=== PATIENT | female | born 2000 | race Caucasian/White ===

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

== ENCOUNTER 2020-04-11 20:54 | Emergency (ER) | payer OTHER, SELFPAY ==
[2020-04-11 20:59] VITALS: BP 139/90; PULSE 109; RESP 14; TEMP 36.9; O2SAT 100; BMI 26.6
--- NOTE | 2020-04-11 21:02 | HMH.EDUTC ---
[facility] [place] Clinical Impression: Viral syndrome Pharyngitis Qualifiers: Pharyngitis/tonsillitis etiology: unspecified etiology Qualified Code(s): J02.9 - Acute pharyngitis, unspecified Disposition: Home, Self-Care Condition on Discharge: Good Instructions: DI for Pharyngitis/Tonsillopharyngitis -- Adult, Preventing the Spread of Coronavirus Discharge Instructions Additional Instructions: Drink plenty of fluids. Take tylenol for pain or fever. Return if you begin to have difficulty breathing. Follow up with your regular doctor. GO TO THE ER FOR ANY WORSENING SYMPTOMS Prescriptions: Azithromycin [Z-Fred 250mg Tab*] 250 mg PO UD DOSE PK #6 tab Transmission Status: Pending to [facility] Referrals: Kaylah Snaford APRN [Primary Care Provider] - Forms: Work/School Release Time of Disposition: 21:06 Medical Decision Making - Medical Records Medical records reviewed: No: I reviewed the patient's medical records. - Nick Inquiry Pt receiving controlled substance: No Vital Signs: 04/11/20 20:59 Temperature 98.5 F Temperature Source Oral Pulse Rate [Radial] 109 H Respiratory Rate 14 Blood Pressure [Right Arm] 139/90 Blood Pressure Mean [Right Arm] 106 Blood Pressure Source [Right Arm] Automatic Cuff Blood Pressure Position [Right Arm] Sitting 02 Sat by Pulse Oximetry 100 Oxygen Delivery Method Room Air - Lab Data Lab results reviewed: Yes: I reviewed the patient's lab results. [facility] [place] - General Stated complaint: SORE THROAT BHATTI Time Seen by Provider: 04/11/20 21:02 Mode of Arrival: Ambulatory Source of Information: Patient Limitations: No Limitations Description of Symptoms (Recalled from Triage Doc. by RN): Headache and sore throat since yesterday HEENT Symptoms (Recalled from RN notes): Yes Resp Symptoms (Recalled from RN notes): No Skin Symptoms (Recalled from RN notes): No MS Symptoms (Recalled from RN notes): No Functional Status (Recalled from RN notes): wnl - History of Present Illness Provider Complaint: She c/o sore throat since yesterday. She has also had a fever and chilling. - Related Data Home Medications Medication Instructions Recorded Confirmed norgestimate-ethinyl estradiol 1 tab PO DAILY 06/16/19 11/24/19 0.18 mg/0.215mg/0.25mg-35 mcg(28)tablet sertraline 100 mg tablet 100 mg PO DAILY 06/16/19 11/24/19 Ergocalciferol (Vitamin D2) 50,000 unit PO QWEEK 09/02/19 11/24/19 [Drisdol] cetirizine 10 mg tablet mg PO 10/07/19 11/24/19 Previous Rx's Medication Instructions Recorded diclofenac sodium 1 % topical gel 4 g TOPICAL QID PRN #30 g 06/16/19 ibuprofen 800 mg tablet 800 mg PO BID #60 tab 08/25/19 ondansetron 4 mg disintegrating 4 mg PO Q6H #30 tab 08/25/19 tablet Azithromycin [Z-Fred 250mg Tab*] 250 mg PO UD DOSE PK #6 tab 04/11/20 Allergies Allergy/AdvReac Type Severity Reaction Status Date / Time amoxicillin [AMOXICILLIN] Allergy Mild Rash Verified 11/24/19 14:24 Penicillins [PENICILLINS] Allergy Mild Rash Verified 11/24/19 14:24 alcohol Allergy Rash Verified 11/24/19 14:24 [From Mastisol Liquid Adhesive] gum mastic Allergy Rash Verified 11/24/19 14:24 [From Mastisol Liquid Adhesive] methyl salicylate Allergy Rash Verified 11/24/19 14:24 [From Mastisol Liquid Adhesive] storax Allergy Rash Verified 11/24/19 14:24 [From Mastisol Liquid Adhesive] - Worker's Comp Is this a Worker's Comp case?: No H History - Hepatitis A Screen Drug use history?: No High risk sexual behaviors?: No History of sexually transmitted infection?: No Currently employed?: No Childcare worker?: No Do you have indoor plumbing?: Yes Do you have electricity?: Yes Attestation statement:: This patient has been screened for Hepatitis A risk factors. I have reviewed the patient's past medical history: Yes Medical History: Reports:: Anxiety, Depression Denies:: Cancer, Diabetes Mellitus Ty
[2020-04-11 21:09] VITALS: BP 139/90; PULSE 109; RESP 14; TEMP 36.9; O2SAT 100
[2020-04-13 12:35] LABS: Covid-19 Nasal PCR Sendout P&C NEGATIVE
[2020-04-14 11:15] LABS: UTC Strep Screen (Rapid) Negative (Negative)
== END 2020-04-11 21:12 | disposition home or self-care (01) ==
PROVIDERS: Emergency Provider Nurse Practitioner Family; PCP Nurse Practitioner
DX: Z20.828 Contact with and (suspected) exposure to other viral communicable diseases (principal); B34.9 Viral infection, unspecified; J02.9 Acute pharyngitis, unspecified; F41.8 Other specified anxiety disorders; Z88.0 Allergy status to penicillin
CPT/HCPCS: 87880; 99202; U0004

== ENCOUNTER → 2020-05-01 10:21 | Outpatient (CLI) | payer OTHER, SELFPAY | PROVIDERS: PCP Nurse Practitioner; Visit Provider Nurse Practitioner | DX: Z20.822 Contact with and (suspected) exposure to COVID-19 (principal); U07.1 COVID-19 | CPT/HCPCS: U0003 ==

== ENCOUNTER → 2020-11-13 14:18 | Outpatient (CLI) | payer OTHER, SELFPAY ==
[2020-11-13 14:46] VITALS: BMI 29.7
== END ==
PROVIDERS: PCP Family Medicine; Visit Provider Nurse Practitioner Family
DX: Z02.1 Encounter for pre-employment examination (principal)

== ENCOUNTER 2020-12-15 18:16 | Emergency (ER) | payer OTHER, SELFPAY ==
[2020-12-15 19:35] VITALS: BP 160/83; PULSE 83; RESP 19; TEMP 36.9; O2SAT 100; BMI 29.4
--- NOTE | 2020-12-15 19:39 | HMH.EDUTC ---
[facility] [place]position Clinical Impression: Low back pain Qualifiers: Chronicity: unspecified Back pain laterality: right Sciatica presence: without sciatica Qualified Code(s): M54.5 - Low back pain Disposition: Home, Self-Care Condition on Discharge: Good Instructions: Diarrhea, DI for Low Back Pain Additional Instructions: Make sure if pain in your lower abdomen returns go straight to the ER for further testing and evaluation Return if needed Monitor for fever over the counter Tylenol may help to lower fever *Ibuprofen magaly 6 hours with meal as needed for pain/inflammation *Not additional anti-inflammatory like motrin, aleve, advil with the above amount of Ibuprofen. You can still take Tylenol every 4 hours as needed if you need something else for pain *Ice 20 minutes every 2 hours for the first 48 hours after the initial injury followed by moist heat every 20 minutes 3-4 times a day to affected area *Muscle relaxer as prescribed as needed for muscle spasms but remember, it WILL cause drowsiness You cannot take it and drive, operate machinery or care for small children. *Keep this area active, no movement leads to more stiffness, However take it easy and avoid heavy lifting pushing or pulling *Follow up with you family doctor if no improvement for further treatment Prescriptions: Ibuprofen [Ibuprofen 600mg Tablet] 600 mg PO Q6HP PRN #20 tab PRN Reason: Moderate Pain Transmission Status: Received by [facility] methocarbamoL [Methocarbamol 500mg Tablet] 500 mg PO BID PRN #10 tab PRN Reason: Muscle Spasm Transmission Status: Received by [facility] Referrals: Justin Tristan MD [Primary Care Provider] - As needed (Follow up ) Time of Disposition: 19:58 Medical Decision Making - Nick Inquiry Pt receiving controlled substance: No Nick was queried for this patient: No Vital Signs: 12/15/20 19:35 12/15/20 19:53 Temperature 98.5 F Temperature Source Oral Pulse Rate [Left] 83 Respiratory Rate 19 Blood Pressure [Right Arm] 160/83 H 133/77 Blood Pressure Mean [Right Arm] 108 95 Blood Pressure Source [Right Arm] Automatic Cuff Blood Pressure Position [Right Arm] Sitting 02 Sat by Pulse Oximetry 100 - Lab Data Lab results reviewed: Yes: I reviewed the patient's lab results. Medical Decision Narrative: Discussed with patient and recommended transfer to the ED for further work up and evaluation Patient states that she is no longer having pain in her lower abdomen states that she does still having achy like pain in her lower back area that is worse with movement or palpation Declined transfer to ED states that she will follow up with PCP if any worsening of symptom or come back to the ED if pain worsens or returns in abdomen Patient state that she has taken Ibuprofen before without reaction or complications Again discussed with patient about transfer to the ED for further work up and testing and patient declined states that if pain returns or worsens she will go to ED or follow up with PCP [facility] [place] HPI - General Stated complaint: lower back pain Time Seen by Provider: 12/15/20 19:39 Mode of Arrival: Ambulatory Source of Information: Patient Limitations: No Limitations Description of Symptoms (Recalled from Triage Doc. by RN): pt c/o lower R side pain that is now hurting in her back. pain is on and off and pt has had diarhea since last night. HEENT Symptoms (Recalled from RN notes): No Resp Symptoms (Recalled from RN notes): No Skin Symptoms (Recalled from RN notes): No MS Symptoms (Recalled from RN notes): No Functional Status (Recalled from RN notes): na - History of Present Illness Provider Complaint: Patient state that yesterday she was eating and had achy like pain in her right lower quad/side area that seemed to move towards her back State that pain stopped but now she is having achy like pain in her right lower back area Denies known injury but states pain is worse with movement. States that she
[2020-12-15 19:53] VITALS: BP 133/77
[2020-12-15 20:29] VITALS: BP 160/83; PULSE 83; RESP 19; TEMP 36.9
== END 2020-12-15 20:30 | disposition home or self-care (01) ==
PROVIDERS: Emergency Provider Nurse Practitioner; PCP Family Medicine
DX: M54.5 Low back pain (principal); R19.7 Diarrhea, unspecified; Z88.0 Allergy status to penicillin; Z91.048 Other nonmedicinal substance allergy status; F41.8 Other specified anxiety disorders
CPT/HCPCS: 99203; G0463

== ENCOUNTER → 2021-02-16 15:04 | Outpatient (CLI) | payer OTHER, SELFPAY | PROVIDERS: PCP Family Medicine; Visit Provider Nurse Practitioner | DX: Z20.822 Contact with and (suspected) exposure to COVID-19 (principal) | CPT/HCPCS: C9803; U0003; U0005 ==

== ENCOUNTER → 2021-06-14 14:52 | Outpatient (CLI) | payer OTHER, SELFPAY ==
[2021-06-14 16:22] LABS: HCG,Quantitative 3902 mIU/ml (0-5.42)
== END ==
PROVIDERS: PCP Family Medicine; Visit Provider Obstetrics & Gynecology
DX: Z32.01 Encounter for pregnancy test, result positive (principal)
CPT/HCPCS: 36415; 84702

== ENCOUNTER → 2021-06-15 15:19 | Outpatient (CLI) | payer OTHER, SELFPAY ==
[2021-06-15 17:06] LABS: HCG,Quantitative 6037 mIU/ml (0-5.42)
== END ==
PROVIDERS: Visit Provider Obstetrics & Gynecology
DX: Z34.90 Encounter for supervision of normal pregnancy, unspecified, unspecified trimester (principal)
CPT/HCPCS: 36415; 84702

== ENCOUNTER → 2021-06-29 12:43 | Outpatient (CLI) | payer OTHER, SELFPAY ==
--- NOTE | 2021-06-29 12:52 | US_ITS ---
FINAL REPORT CLINICAL HISTORY: Dates FINDINGS: Transvaginal sonographic images of the pelvis were obtained. Single living intrauterine is noted with average ultrasound age of 7 weeks, 1 day. [place]-rump length is 1.03 cm consistent with 7 weeks 1 day. Heart rate is detected at 151 bpm. Yolk sac is present. The right ovary measures 3.2 x 2.6 x 2.5 cm. The left ovary measures 2.2 x 1.5 x 1.9 cm. Both ovaries appear normal. IMPRESSION: Single living intrauterine . Reviewed, Interpreted and Dictated by Arnav Lopez III, MD Transcribed by Sandra Quezada Authenticated by Arnav Lopez III, MD on 06/29/2021 02:28:34 PM [facility]
[2021-06-29 14:11] LABS: Basophils % 0.5 % (0.1-2.0); Eosinophils % 0.3 % (0.1-12.0); Hematocrit 41.2 % (37.0-47.0); Hemoglobin 13.1 g/dL (12.2-16.2); Lymphocytes # 1.8 K/mm3 (0.7-4.5); Lymphocytes % 28.3 % (10-50); Mean Corpuscular HGB Conc 31.8 g/dL (31.8-35.4); Mean Corpuscular Hemoglobin 28.3 pg (27.0-31.2); Mean Corpuscular Volume 89.1 fl (81-99); Mean Platelet Volume 9.9 fl (7.4-10.4); Monocytes # 0.4 K/mm3 (0.1-1.0); Monocytes % 6.8 % (1.7-9.3); Neutrophils # 4.2 K/mm3 (1.8-7.8); Neutrophils % 64.2 % (37.0-80.0); Platelet Count 294 K/mm3 (142-424); Red Blood Count 4.63 M/mm3 (4.20-5.40); Red Cell Distribution Width 13.3 % (11.5-17.5); White Blood Count 6.5 K/mm3 (4.8-10.8)
[2021-07-01 09:23] LABS: HIV Screen 4th Generation wRfx Non Reactive (Non Reactive)
[2021-07-01 10:13] LABS: Rapid Plasma Reagin Ab Titer Non Reactive (NonRea<1:1); Rubella Antibodies, IgG 9.35 index (Immune >0.99)
[2021-07-01 11:13] LABS: Hepatitis B Surface Antigen Negative (Negative); Hepatitis C Antibody <0.1 s/co ratio (0.0-0.9)
== END ==
PROVIDERS: PCP Family Medicine; Visit Provider Obstetrics & Gynecology
DX: Z34.90 Encounter for supervision of normal pregnancy, unspecified, unspecified trimester (principal)
CPT/HCPCS: 36415; 76801; 85025; 86592; 86703; 86762; 86850; 87340; 87380; G0432

== ENCOUNTER 2021-09-19 11:19 | Emergency (ER) | payer OTHER, SELFPAY ==
[2021-09-19 11:33] VITALS: BP 131/76; PULSE 82; RESP 19; TEMP 36.8; O2SAT 98; BMI 27.3
--- NOTE | 2021-09-19 11:56 | HMH.EDUTC ---
[facility] [place] Clinical Impression: Asymptomatic bacteriuria during Low back pain Qualifiers: Chronicity: acute Back pain laterality: right Sciatica presence: without sciatica Qualified Code(s): M54.50 - Low back pain, unspecified Disposition: Home, Self-Care Condition on Discharge: Good Instructions: DI for Low Back Pain Prescriptions: Nitrofurantoin Monohyd/M-Cryst [Macrobid 100 mg Capsule] 100 mg PO DAILY 5 Days #5 cap Prescription Printed Referrals: Mary Jane Solorzano APRN [Primary Care Provider] - Medical Decision Making - Medical Records Medical records reviewed: No: I reviewed the patient's medical records. - Nick Inquiry Pt receiving controlled substance: No Vital Signs: 09/19/21 11:33 09/19/21 13:06 09/19/21 13:30 Temperature 98.3 F 98.4 F Temperature Source Oral Oral Pulse Rate 78 Pulse Rate [Left Radial] 82 80 Respiratory Rate 19 18 16 Blood Pressure 115/64 Blood Pressure [Right Arm] 131/76 140/86 Blood Pressure Mean 81 Blood Pressure Mean [Right Arm] 94 104 Blood Pressure Position 02 Sat by Pulse Oximetry 98 100 100 Oxygen Delivery Method Room Air 09/19/21 14:00 09/19/21 15:56 Temperature 98 F Temperature Source Oral Pulse Rate 68 78 Pulse Rate [Left Radial] Respiratory Rate 18 16 Blood Pressure 119/64 123/74 Blood Pressure [Right Arm] Blood Pressure Mean 78 Blood Pressure Mean [Right Arm] Blood Pressure Position Sitting 02 Sat by Pulse Oximetry 100 Oxygen Delivery Method Room Air - Lab Data Lab results reviewed: Yes: I reviewed the patient's lab results. Lab Results 09/19/21 11:35: Urine Color Yellow, Urine Appearance Cloudy, Urine pH 7.5, Ur Specific [place] 1.020, Urine Protein Negative, Urine Glucose (UA) Negative, Urine Ketones Negative, Urine Blood Negative, Urine Nitrate Negative, Urine Bilirubin Negative, Urine Urobilinogen 0.2, Ur Leukocyte Esterase 1+ A 09/19/21 11:36: Urine Color Yellow, Urine Appearance Clear, Urine pH 7.5, Ur Specific [place] 1.015, Urine Protein Negative, Urine Glucose (UA) Negative, Urine Ketones Negative, Urine Blood Negative, Urine Nitrate Negative, Urine Bilirubin Negative, Urine Urobilinogen 0.2, Ur Leukocyte Esterase 1+ A, Urine RBC Occasional, Urine WBC 3-5, Ur Squamous Epith Cells Occasional, Urine Bacteria Trace 09/19/21 12:52: WBC 9.7, RBC 4.47, Hgb 12.8, Hct 39.6, MCV 88.6, MCH 28.7, MCHC 32.4, RDW 14.0, Plt Count 252, MPV 9.7, Neut % (Auto) 77.3, Lymph % (Auto) 16.8, [place] % (Auto) 2.9, Eos % (Auto) 0.8, Baso % (Auto) 2.3 H, Neut # (Auto) 7.5, Lymph # (Auto) 1.6, [place] # (Auto) 0.3, Eos # (Auto) 0.1, Baso # (Auto) 0.2 09/19/21 12:52: Sodium 134 L, Potassium 4.1, Chloride 104, Carbon Dioxide 22, Anion Gap 12.1, BUN 4 L, Creatinine 0.50 L, Estimated Creat Clear 223, Estimated GFR 156, Est GFR ( Amer) 188, Glucose 85, Calcium 8.7, HCG, Quant [id number] Result diagrams: 09/19/21 12:52 09/19/21 12:52 Orders (Tests/Meds): ORDERS Category Date Time Status Urine Culture Stat Micro 09/19/21 11:36 Received [facility] [place] - General Stated complaint: lower back pain Time Seen by Provider: 09/19/21 11:56 Mode of Arrival: Ambulatory Source of Information: Patient Limitations: No Limitations Description of Symptoms (Recalled from Triage Doc. by RN): pt here for right sided lower back pain. pt is 18 weeks . back pain began this am. HEENT Symptoms (Recalled from RN notes): No Resp Symptoms (Recalled from RN notes): No Skin Symptoms (Recalled from RN notes): No MS Symptoms (Recalled from RN notes): Yes Functional Status (Recalled from RN notes): wnl - History of Present Illness Provider Complaint: She c/o low back pain for the past 2 days. She is 18 weeks . - Related Data Home Medications Medication Instructions Recorded Confirmed sertraline 100 mg tablet 100 mg PO DAILY 06/16/19 08/25/21 prenat.vits,steffi,uln-rrbv-vrjzp 1 tab PO DAILY 07/05/21 08/25/21 Previous Rx's
[2021-09-19 12:29] LABS: Apearance,Urine Cloudy (Clear); Bilirubin,Urine Negative (Negative); Blood, Urine Negative (Negative); Color,Urine Yellow (Yellow); Glucose,Urine (UA) Negative (Negative); Ketones,Urine Negative (Negative); PH,Urine 7.5 (5.0-8.5); Protein,Urine Negative (Negative); Urobilinogen,Urine 0.2 EU/dl (0.2)
[2021-09-19 12:30] LABS: UTC Leukocyte Esterase,Urine 1+ (Negative); UTC Nitrate,Urine Negative (Negative)
[2021-09-19 13:01] LABS: Basophils # 0.2 K/mm3 (0-0.2); Basophils % 2.3 % (0.1-2.0); Eosinophils # 0.1 K/mm3 (0.0-0.4); Eosinophils % 0.8 % (0.1-12.0); Hematocrit 39.6 % (37.0-47.0); Hemoglobin 12.8 g/dL (12.2-16.2); Lymphocytes # 1.6 K/mm3 (0.7-4.5); Lymphocytes % 16.8 % (10-50); Mean Corpuscular HGB Conc 32.4 g/dL (31.8-35.4); Mean Corpuscular Hemoglobin 28.7 pg (27.0-31.2); Mean Corpuscular Volume 88.6 fl (81-99); Mean Platelet Volume 9.7 fl (7.4-10.4); Monocytes # 0.3 K/mm3 (0.1-1.0); Monocytes % 2.9 % (1.7-9.3); Neutrophils # 7.5 K/mm3 (1.8-7.8); Neutrophils % 77.3 % (37.0-80.0); Platelet Count 252 K/mm3 (142-424); Red Blood Count 4.47 M/mm3 (4.20-5.40); White Blood Count 9.7 K/mm3 (4.8-10.8)
[2021-09-19 13:06] VITALS: BP 140/86; PULSE 80; RESP 18; TEMP 36.9; O2SAT 100; BMI 27.3
[2021-09-19 13:11] LABS: Blood Urea Nitrogen 4 mg/dl (7-17); Calcium 8.7 mg/dl (8.4-10.2); Carbon Dioxide 22 mmol/L (22.0-30.0); Chloride 104 mmol/L (98-107); Glucose 85 mg/dl (74-100); Potassium 4.1 mmoL/L (3.5-5.1); Sodium 134 mmol/L (136-145)
--- NOTE | 2021-09-19 13:18 | HMH.EDGENADL ---
ED Disposition Clinical Impression: Asymptomatic bacteriuria during Low back pain Qualifiers: Chronicity: acute Back pain laterality: right Sciatica presence: without sciatica Qualified Code(s): M54.50 - Low back pain, unspecified Disposition: Home, Self-Care Condition on Discharge: Good Prescriptions: Nitrofurantoin Monohyd/M-Cryst [Macrobid 100 mg Capsule] 100 mg PO DAILY 5 Days #5 cap Prescription Printed Referrals: Mary Jane Solorzano APRN [Primary Care Provider] - - Critical Care Critical Care Time: No Attestation: On 09/19/21, the high probability of a clinically significant, sudden or life threatening deterioration of the following system(s) required my full and direct attention, intervention and personal management. The time I documented below is in addition to time spent performing reported procedures but includes the following listed in this critical care notation. Medical Decision Making - Medical Records Medical records reviewed: Yes: I reviewed the patient's medical records. - Nick Inquiry Pt receiving controlled substance: No Vital Signs: 09/19/21 11:33 09/19/21 13:06 09/19/21 13:30 Temperature 98.3 F 98.4 F Temperature Source Oral Oral Pulse Rate 78 Pulse Rate [Left Radial] 82 80 Respiratory Rate 19 18 16 Blood Pressure 115/64 Blood Pressure [Right Arm] 131/76 140/86 Blood Pressure Mean 81 Blood Pressure Mean [Right Arm] 94 104 02 Sat by Pulse Oximetry 98 100 100 Oxygen Delivery Method Room Air 09/19/21 14:00 Temperature Temperature Source Pulse Rate 68 Pulse Rate [Left Radial] Respiratory Rate 18 Blood Pressure 119/64 Blood Pressure [Right Arm] Blood Pressure Mean 78 Blood Pressure Mean [Right Arm] 02 Sat by Pulse Oximetry 100 Oxygen Delivery Method - Lab Data Lab results reviewed: Yes: I reviewed the patient's lab results. Lab Results 09/19/21 11:35: Urine Color Yellow, Urine Appearance Cloudy, Urine pH 7.5, Ur Specific [place] 1.020, Urine Protein Negative, Urine Glucose (UA) Negative, Urine Ketones Negative, Urine Blood Negative, Urine Nitrate Negative, Urine Bilirubin Negative, Urine Urobilinogen 0.2, Ur Leukocyte Esterase 1+ A 09/19/21 11:36: Urine Color Yellow, Urine Appearance Clear, Urine pH 7.5, Ur Specific [place] 1.015, Urine Protein Negative, Urine Glucose (UA) Negative, Urine Ketones Negative, Urine Blood Negative, Urine Nitrate Negative, Urine Bilirubin Negative, Urine Urobilinogen 0.2, Ur Leukocyte Esterase 1+ A, Urine RBC Occasional, Urine WBC 3-5, Ur Squamous Epith Cells Occasional, Urine Bacteria Trace 09/19/21 12:52: WBC 9.7, RBC 4.47, Hgb 12.8, Hct 39.6, MCV 88.6, MCH 28.7, MCHC 32.4, RDW 14.0, Plt Count 252, MPV 9.7, Neut % (Auto) 77.3, Lymph % (Auto) 16.8, [place] % (Auto) 2.9, Eos % (Auto) 0.8, Baso % (Auto) 2.3 H, Neut # (Auto) 7.5, Lymph # (Auto) 1.6, [place] # (Auto) 0.3, Eos # (Auto) 0.1, Baso # (Auto) 0.2 09/19/21 12:52: Sodium 134 L, Potassium 4.1, Chloride 104, Carbon Dioxide 22, Anion Gap 12.1, BUN 4 L, Creatinine 0.50 L, Estimated Creat Clear 223, Estimated GFR 156, Est GFR ( Amer) 188, Glucose 85, Calcium 8.7, HCG, Quant [id number] H Result diagrams: 09/19/21 12:52 09/19/21 12:52 Orders (Tests/Meds): ORDERS Category Date Time Status Urine Culture Stat Micro 09/19/21 11:36 Received US OB >= 14 weeks Fetus Stat Ultrasound 09/19/21 13:48 Taken Medical Decision Narrative: Robbie is a healthy 21-year-old female presenting with a chief complaint of right flank pain and right lower abdominal pain. Denies any vaginal bleeding. Differential diagnosis includes, but is not limited to, urinary tract infection, pyelonephritis, renal stone, complication, other. Initial exam, patient is hemodynamically stable nontoxic-appearing. She was evaluate CBC, CMP, UA and OB ultrasound. Initial blood pressure is hypertensive but normalizes on recheck. Lab work is unremarkable, UA is negative for proteinuria. On reas
[2021-09-19 13:30] VITALS: BP 115/64; PULSE 78; RESP 16; O2SAT 100
[2021-09-19 13:31] LABS: Creatinine Clearance Estimated 223 mL/min (50-200); Estimated Glomerular Filt Rate 156 ml/min (>60); GFR (African American) 188 ML/MIN (>60)
--- NOTE | 2021-09-19 13:46 | PC.NURSE ---
notified LIANNE LEE of R
--- NOTE | 2021-09-19 13:48 | US_ITS ---
PROCEDURE INFORMATION: Exam: US After First Trimester, Transabdominal Exam date and time: 09/19/2021 2:23 PM Age: 21 years old Clinical indication: complicated by abdominal or pelvic pain; Other: RT low back; Gestational age or lmp: 18 w 6 d; ; Additional info: Abd pain TECHNIQUE: Imaging protocol: Real-time transabdominal obstetrical ultrasound of the maternal pelvis and a second or third trimester with image documentation. COMPARISON: US OB <= 14 WEEKS FETUS 06/29/2021 1:04 PM FINDINGS: Gestation: See heart rate finding. heart rate: 142 BPM. presentation: breech presentation. Placenta: Anterior placenta, grade 1. Amniotic fluid: Amniotic fluid is normal for gestational age. ANATOMY: midline falx: Normal cerebellum: Normal heart four-chamber view, heart size and position: Four-chamber heart demonstrated. kidneys: Incompletely evaluated stomach: Obscuredbyposition urinary bladder: Demonstrated spine: Obscuredbyposition Umbilical cord insertion site into the abdomen: Normal Umbilical cord vessel number: Obscuredbyposition arms and hands: Incompletely evaluated legs and feet: Incompletely evaluated. external genitalia: NormalExternalGenitaliaParts BIOMETRY: Gestational age (AUA): AUA: 19 weeks 5 days. Estimated due date (AUA): 02/08/2022. Estimated weight: 314 g (11 oz) Biparietal diameter (BPD): BPD 4.46 cm. Nineteen weeks 4 days. Head circumference (HC): Scar 16.36 cm. Nineteen weeks 1 day. Abdominal circumference (AC): 15.09 cm. Twenty weeks 3 days. Femur length (FL): 3.04 cm. Nineteen weeks 3 days. MATERNAL: Uterus: Unremarkable. Cervix: Unremarkable. Right ovary/adnexa: Obscured by lack of adequate acoustic window. Left ovary/adnexa: Obscured by lack of adequate acoustic window. Right kidney: Mild dilatation of the maternal right kidney. Intraperitoneal space: No intraperitoneal free fluid. Other findings: Ovaries not identified. IMPRESSION: 1. Single live intrauterine gestation 19 weeks 5 days by ultrasound dating. 2. Mild right hydronephrosis. 3. anatomy not completely evaluated. Follow-up at appropriate interval recommended.
--- NOTE | 2021-09-19 13:48 | PC.NURSE ---
spoke with rodolfo in lab, reports she does have urine that was sent from [facility], states she will receive it in now.
[2021-09-19 13:49] LABS: Microscopic, Urine URINE MICROSCOPIC (MICROSCOPIC)
--- NOTE | 2021-09-19 13:51 | PC.NURSE ---
notified radiology of ultrasound order, spoke with bobby, states she will let occupational therapy technician staff know.
[2021-09-19 14:00] VITALS: BP 119/64; PULSE 68; RESP 18; O2SAT 100
[2021-09-19 14:00] LABS: Appearance,Urine CLEAR (Clear); Bilirubin,Urine Negative (Negative); Blood, Urine Negative (Negative); Color,Urine YELLOW (Yellow); Glucose,Urine (UA) Negative (Negative); Ketones,Urine Negative (Negative); Leukocyte Esterase,Urine 1+ (Negative); Nitrate,Urine Negative (Negative); PH,Urine 7.5 (5.0-8.5); Protein,Urine Negative (Negative); Specific Gravity, Urine 1.015 (1.005-1.030); Urobilinogen,Urine 0.2 EU/dl (0.2)
[2021-09-19 14:04] LABS: Anion Gap 12.1 mEq/L (5-15); HCG,Quantitative 16120 mIU/ml (0-5.42)
[2021-09-19 14:14] LABS: Bacteria,Urine Trace /lpf; RBC,Urine Occasional #/hpf (0-3); Squamous Epithelial Cell,Urine Occasional #/hpf (0-5)
--- NOTE | 2021-09-19 14:25 | PC.NURSE ---
pt to ultrasound
[2021-09-19 15:56] VITALS: BP 123/74; PULSE 78; RESP 16; TEMP 36.6; O2SAT 97
== END 2021-09-19 15:57 | disposition home or self-care (01) ==
LOC: UTC 11:21 → ER 12:47
PROVIDERS: Nurse Practitioner Family; Emergency Provider Emergency Medicine; PCP Nurse Practitioner Family
DX: O23.92 Unspecified genitourinary tract infection in pregnancy, second trimester (principal); O26.892 Other specified pregnancy related conditions, second trimester; M54.50 Low back pain, unspecified; O99.342 Other mental disorders complicating pregnancy, second trimester; F32.A Depression, unspecified; F41.9 Anxiety disorder, unspecified; Z79.899 Other long term (current) drug therapy; Z88.0 Allergy status to penicillin; Z88.1 Allergy status to other antibiotic agents; Z88.3 Allergy status to other anti-infective agents; Z88.8 Allergy status to other drugs, medicaments and biological substances; Z3A.18 18 weeks gestation of pregnancy
CPT/HCPCS: 76805; 80048; 81001; 81003; 84702; 85025; 87086; 99284

== ENCOUNTER → 2021-09-30 14:18 | Outpatient (CLI) | payer OTHER, SELFPAY ==
--- NOTE | 2021-09-30 14:26 | US_ITS ---
FINAL REPORT CLINICAL HISTORY: Anatomy COMPARISON: 09/19/2021 FINDINGS: There is a single live intrauterine gestation. Presentation is breech. The cervix is closed and measures 4 cm. Placenta is anterior, grade 1. movement is noted. heart rate is 146 beats per minute. Three-vessel cord with satisfactory umbilical cord insertion. Four-chamber heart is noted. brain and ventricles are unremarkable. Chest and diaphragm are unremarkable. ABDOMEN: Both kidneys are unremarkable. Stomach is unremarkable. SPINE: No anomalies identified. Both arms and legs noted. AMNIOTIC FLUID: Appropriate amount. MEASUREMENTS: ULTRASOUND AGE: 20 weeks 6 days. GESTATION AGE: 20 weeks 3 days. ESTIMATED WEIGHT: 399 g GROWTH PERCENTILE: 81 % BPD: 4.83 cm corresponding to 20 weeks 5 days. OFD: 6.25 cm corresponding to 21 weeks 0 days. HC: 17.55 cm corresponding to 20 weeks 1 day. AC: 16.17 cm corresponding to 21 weeks 2 days. FL: 3.55 cm corresponding to 21 weeks 2 days. CEREBELLUM: 2.02 cm corresponding to 20 weeks 4 days. HUMERUS: 3.40 cm corresponding to 21 weeks 4 days. HC/AC: 1.09 CI: 77% FL/BPD: 73% FL/AC: 22% IMPRESSION: Single living IUP with an ultrasound age of 20 weeks 6 days. Reviewed, Interpreted and Dictated by Arnav Lopez III, MD Transcribed by Kylah Christianson Authenticated and . [facility]
== END ==
PROVIDERS: PCP Nurse Practitioner Family; Visit Provider Obstetrics & Gynecology
DX: Z34.90 Encounter for supervision of normal pregnancy, unspecified, unspecified trimester (principal)
CPT/HCPCS: 76811

== ENCOUNTER 2023-08-07 15:47 | Day surgery (SDC) | payer BC, SELFPAY ==
[2023-08-07] VITALS (10 sets, daily range): BP systolic 105–142; BP diastolic 50–100; PULSE 78–96; RESP 16–19; TEMP 36.3–36.9; O2SAT 94–100; BMI 30.7
--- NOTE | 2023-08-07 15:55 | HMH.EDGENADL ---
Discharge Plan Disposition Patient Disposition: Admitted Condition: Good Clinical Impressions Clinical Impression: Acute appendicitis Discharge ED Provider: Josse Avelar General Adult HPI <JENIFER Ocampo - Last Filed: 08/07/23 17:48> General Chief complaint: Abdominal Pain Stated complaint: lower right abd pain Time Seen by Provider: 08/07/23 15:50 Mode of Arrival: Ambulatory Source of Information: Patient Limitations: No Limitations Description of Symptoms (Recalled from ER Triage Doc. by RN): Patient reports a sharp pain that developed approx 1 hour ago in her right lower abdomen. Denies N/V/D. History of Present Illness HPI narrative: Patient presents for evaluation of acute right lower quadrant abdominal pain. Patient states that pain began suddenly without any provoking event. She reports nausea but no vomiting or diarrhea. Patient's last bowel movement was today. She denies chest pain shortness of breath fever chills hemoptysis hematochezia melena nausea vomiting diarrhea, vaginal discharge, dysuria hematuria. Related Data Home Medications Medication Instructions Recorded Confirmed sertraline 100 mg tablet 100 mg PO DAILY Depression 06/16/19 10/07/21 prenat.vits,steffi,vhb-ucke-lmvjt 1 tab PO DAILY 07/05/21 10/07/21 Previous Rx's Medication Instructions Recorded ondansetron 4 mg disintegrating 4 mg PO Q4H PRN nausea and 07/05/21 tablet vomiting #30 tabs clindamycin HCl 300 mg capsule 300 mg PO Q6H 5 days #20 caps 08/07/23 hydrocodone 5 mg-acetaminophen 325 1 tab PO Q6H PRN post-op pain #17 08/07/23 mg tablet tabs metronidazole 500 mg tablet 500 mg PO Q12H #10 tabs 08/07/23 Allergies Allergy/AdvReac Type Severity Reaction Status Date / Time amoxicillin [AMOXICILLIN] Allergy Mild Rash Verified 10/07/21 15:51 Penicillins [PENICILLINS] Allergy Mild Rash Verified 10/07/21 15:51 alcohol Allergy Rash Verified 10/07/21 15:51 [From Mastisol Liquid Adhesive] gum mastic Allergy Rash Verified 10/07/21 15:51 [From Mastisol Liquid Adhesive] methyl salicylate Allergy Rash Verified 10/07/21 15:51 [From Mastisol Liquid Adhesive] storax Allergy Rash Verified 10/07/21 15:51 [From Mastisol Liquid Adhesive] [facility] <JENIFER Ocampo - Last Filed: 08/07/23 17:48> [facility] Disclaimer: The information contained in this section may have been updated after the patient was seen, as this information can be updated by other users. Social History Smoking Status: Never smoker second hand exposure: No alcohol intake: never substance use type: denies use current occupational status: employed Travel in the last 8 weeks: None household members: family housing: house current occupation: [employer] caffeine: Yes <JENIFER Ocampo - Last Filed: 08/07/23 17:48> ROS Obtained: Yes Systems reviewed as appropriate & no additional complaints except as documented Physical Exam <JENIFER Ocampo Last Filed: 08/07/23 17:48> General General appearance: alert and in no apparent distress Head Head exam: atraumatic and normal inspection Eye Eye exam: Present normal appearance and EOMI ENT ENT exam: Present normal exam, normal oropharynx and mucous membranes moist Neck Neck exam: Present normal inspection and full ROM Chest Chest inspection: Present normal inspection and symmetric chest wall rise Respiratory Respiratory exam: Present normal lung sounds bilaterally; Absent respiratory distress Cardiovascular Cardiovascular exam: Present regular rate and normal rhythm Abdominal Exam Abdominal exam: Present soft, tenderness (Patient is moderately tender to palpation both in the right upper and right lower quadrants but no rebound guarding or rigidity currently) and normal bowel sounds; Absent guarding or rebound Extremities Exam Extremities exam: Present normal inspection and full ROM Back Exam Back exam: Present normal inspection and full ROM; Absent tenderness Neurological Exam Neurological exam: Present alert and oriented X3 Psychiatric Psychiatric exam: Present normal affect and normal mood Skin Skin exam: Present warm, dry and normal color Medical Decision Making <JENIFER Ocampo - Last Filed: 08/07/23 17:48> Medical Records Medical records reviewed: Yes I reviewed the patient's medical records. Nick Inquiry Pt receiving controlled substance: No Vital Signs: 08/07/23 15:48 08/07/23 17:30 08/07/23 18:30 Temperature 98.1 F 98.1 F Temperature Source Oral Oral Pulse Rate 85 85 Pulse Rate [Radial] 96 H Respiratory Rate 16 16 Blood Pressure 121/76 121/76 Blood Pressure [Right Arm] 142/100 H Blood Pressure Mean [Right Arm] 114 Blood Pressure Source Automatic Cuff Blood Pressure Source [Right Arm] Automatic Cuff Blood Pressure Position Sitting Blood Pressure Position [Right Arm] Sitting 02 Sat by Pulse Oximetry 100 100 Oxygen Delivery Method Room Air Room Air Room Air Lab Data Lab results reviewed: Yes I reviewed the patient's lab results. Lab Results 08/07/23 16:00: WBC 12.9 H, RBC 4.95, Hgb 13.1, Hct 42.5, MCV 85.8, MCH 26.4 L, MCHC 30.8 L, RDW 13.9, Plt Count 334, MPV 8.8, Neut % (Auto) 71.2, Lymph % (Auto) 22.5, [place] % (Auto) 3.7, Eos % (Auto) 1.5, Baso % (Auto) 1.1, Neut # (Auto) 9.2 H, Lymph # (Auto) 2.9, [place] # (Auto) 0.5, Eos # (Auto) 0.2, Baso # (Auto) 0.2, PT 11.0, INR 1.02, Sodium 141, Potassium 3.8, Chloride 104, Carbon Dioxide 31 H, Anion Gap 9.8, BUN 12, Creatinine 0.70, Estimated Creat Clear 170, Estimated GFR 104, Est GFR ( Amer) 125, Glucose 113 H, Calcium 9.1, Magnesium 2.2, Total Bilirubin 0.4, AST 30, ALT 23, Alkaline Phosphatase 84, C-Reactive Protein 1.1, Total Protein 7.4, Albumin 4.5, Globulin 2.9, Albumin/Globulin Ratio 1.6, Serum HCG, Qual Negative 08/07/23 16:08: Urine Color Christa, Urine Appearance Clear, Urine pH 6.0, Ur Specific [place] 1.025, Urine Protein Negative, Urine Glucose (UA) Negative, Urine Ketones Trace, Urine Blood 1+, Urine Nitrate Negative, Urine Bilirubin 1+ A, Urine Urobilinogen 0.2, Ur Leukocyte Esterase Trace, Urine RBC Occasional, Urine WBC Occasional, Ur Squamous Epith Cells 3-5, Urine Bacteria Trace 08/07/23 16:00 08/07/23 16:00 Orders (Tests/Meds): ED MEDICATIONS Generic Name Dose Route Start Last Admin Trade Name Freq PRN Reason Stop Dose Admin Hydromorphone HCl 0.5 mg 08/07/23 20:31 Hydromorphone 2mg/Ml Syringe IV 08/07/23 22:31 Q5MINP PRN Severe Pain (7-10) Clindamycin Phosphate 900 mg in 50 mls @ 100 mls/hr 08/07/23 18:45 Clindamycin 900mg/50ml D5w Premix IV 08/07/23 18:57 ONCE ONE Metronidazole 500 mg in 100 mls @ 100 mls/hr 08/07/23 18:45 08/07/23 19:00 Flagyl 500mg/100ml Ivpb IV 08/07/23 19:27 100 mls/hr ONCE ONE Administration Meperidine HCl 12.5 mg 08/07/23 20:31 Meperidine 25mg/Ml 1ml Syringe IV 08/07/23 22:31 Q5MINP PRN Shivering Morphine Sulfate 1 mg 08/07/23 20:31 Morphine 2mg/Ml Syringe IV 08/07/23 22:31 Q5MINP PRN Mild Pain (1-3) Ondansetron HCl 4 mg 08/07/23 20:31 Ondansetron 4mg/2ml Vial IV 08/07/23 22:32 Q6HP PRN Nausea Discontinued Medications Generic Name Dose Route Start Last Admin Trade Name Freq PRN Reason Stop Dose Admin Acetaminophen 1,000 mg 08/07/23 15:55 08/07/23 16:09 Acetaminophen 1,000mg/100ml Vial IV 08/07/23 15:56 1,000 mg ONCE ONE Administration Lactated Ringer's 1,000 mls @ 999 mls/hr 08/07/23 15:55 08/07/23 16:09 Lactated Ringer's 1000 Ml Bag IV 08/07/23 16:55 999 mls/hr .Q1H1M ONE Administration Clindamycin Phosphate 900 mg in 50 mls @ 100 mls/hr 08/07/23 18:28 Clindamycin 900mg/50ml D5w Premix IV 08/07/23 18:57 ONCE ONE Metronidazole 500 mg in 100 mls @ 100 mls/hr 08/07/23 18:28 Flagyl 500mg/100ml Ivpb IV 08/07/23 19:27 ONCE ONE Iopamidol 75 ml 08/07/23 17:19 08/07/23 17:20 Iopamidol-370 (76%);100ml Bottle IV 08/07/23 17:20 75 ml ONCE ONE Administration Ketorolac Tromethamine 15 mg 08/07/23 15:55 08/07/23 16:09 Ketorolac 30mg/Ml Vial IV 08/07/23 15:56 15 mg ONCE ONE Administration Ondansetron HCl 4 mg 08/07/23 15:59 08/07/23 16:09 Ondansetron 4mg/2ml Vial IV 08/07/23 16:00 4 mg ONCE ONE Administration Sodium Chloride 10 ml 08/07/23 17:19 08/07/23 17:19 Sodium Chloride 0.9% 10ml Syr (Rad Only) IV 08/07/23 17:20 10 ml ONCE ONE Administration ORDERS Category Date Time Status CT abdomen pelvis w con Stat Cat Scan 08/07/23 15:58 Completed US gallbladder Stat Exams 08/07/23 16:09 Completed CBC w/Auto Diff [Complete Blood Count Auto Diff] Stat Lab 08/07/23 16:00 Completed CMP [Comprehensive Metabolic Panel] Stat Lab 08/07/23 16:00 Completed CRP [C-Reactive Protein] Stat Lab 08/07/23 16:00 Completed HCG Qualitative, Serum Stat Lab 08/07/23 16:00 Completed INR [Prothrombin Time INR] Stat Lab 08/07/23 16:00 Completed Magnesium Stat Lab 08/07/23 16:00 Completed UA [Urinalysis and Microscopic] Stat Lab 08/07/23 16:08 Completed Urinalysis (cathed specimen) Routine Lab 08/07/23 18:51 Ordered Medical Decision Narrative: In summary patient is a 23-year-old female who presents to the emergency department for evaluation of evaluation of right-sided acute abdominal pain. Patient is hemodynamically stable upon arrival, afebrile. Physical exam is remarkable for both right upper and right lower quadrant abdominal pain however there is no rebound no guarding no rigidity. Bowel sounds are normal active. No peritoneal signs currently. Differential diagnosis includes acute cholecystitis, acute cholelithiasis, acute appendicitis, ovarian torsion, constipation etc. Initial workup will be conducted with hematologic labs beta-hCG, CT scan abdomen pelvis, right upper quadrant ultrasound, urine. Initial interventions include Toradol and Tylenol and Zofran. Initial workup reviewed by me shows an elevated white count with a left shift, and my informal read of her CT scan abdomen pelvis shows findings consistent and concerning for acute appendicitis the remainder of her workup nonactionable. Upon repeat evaluation she continues to have intermittent waxing and waning pain. Given this discussed patient management with general surgery who agrees that this is reasonable to take patient to the operating room this evening. Patient verbalized understanding and agreement. <Josse Avelar MD - Last Filed: 08/07/23 23:29> Vital Signs: 08/07/23 15:48 08/07/23 17:30 08/07/23 18:30 Temperature 98.1 F 98.1 F Temperature Source Oral Oral Pulse Rate 85 85 Pulse Rate [Radial] 96 H Respiratory Rate 16 16 Blood Pressure 121/76 121/76 Blood Pressure [Right Arm] 142/100 H Blood Pressure Mean [Right Arm] 114 Blood Pressure Source Automatic Cuff Blood Pressure Source [Right Arm] Automatic Cuff Blood Pressure Position Sitting Blood Pressure Position [Right Arm] Sitting 02 Sat by Pulse Oximetry 100 100 Oxygen Delivery Method Room Air Room Air Room Air Lab Data Lab Results 08/07/23 16:00: WBC 12.9 H, RBC 4.95, Hgb 13.1, Hct 42.5, MCV 85.8, MCH 26.4 L, MCHC 30.8 L, RDW 13.9, Plt Count 334, MPV 8.8, Neut % (Auto) 71.2, Lymph % (Auto) 22.5, [place] % (Auto) 3.7, Eos % (Auto) 1.5, Baso % (Auto) 1.1, Neut # (Auto) 9.2 H, Lymph # (Auto) 2.9, [place] # (Auto) 0.5, Eos # (Auto) 0.2, Baso # (Auto) 0.2, PT 11.0, INR 1.02, Sodium 141, Potassium 3.8, Chloride 104, Carbon Dioxide 31 H, Anion Gap 9.8, BUN 12, Creatinine 0.70, Estimated Creat Clear 170, Estimated GFR 104, Est GFR ( Amer) 125, Glucose 113 H, Calcium 9.1, Magnesium 2.2, Total Bilirubin 0.4, AST 30, ALT 23, Alkaline Phosphatase 84, C-Reactive Protein 1.1, Total Protein 7.4, Albumin 4.5, Globulin 2.9, Albumin/Globulin Ratio 1.6, Serum HCG, Qual Negative 08/07/23 16:08: Urine Color Christa, Urine Appearance Clear, Urine pH 6.0, Ur Specific [place] 1.025, Urine Protein Negative, Urine Glucose (UA) Negative, Urine Ketones Trace, Urine Blood 1+, Urine Nitrate Negative, Urine Bilirubin 1+ A, Urine Urobilinogen 0.2, Ur Leukocyte Esterase Trace, Urine RBC Occasional, Urine WBC Occasional, Ur Squamous Epith Cells 3-5, Urine Bacteria Trace Orders (Tests/Meds): ED MEDICATIONS Generic Name Dose Route Start Last Admin Trade Name Freq PRN Reason Stop Dose Admin Hydromorphone HCl 0.5 mg 08/07/23 20:31 Hydromorphone 2mg/Ml Syringe IV 08/07/23 22:31 Q5MINP PRN Severe Pain (7-10) Clindamycin Phosphate 900 mg in 50 mls @ 100 mls/hr 08/07/23 18:45 Clindamycin 900mg/50ml D5w Premix IV 08/07/23 18:57 ONCE ONE Metronidazole 500 mg in 100 mls @ 100 mls/hr 08/07/23 18:45 08/07/23 19:00 Flagyl 500mg/100ml Ivpb IV 08/07/23 19:27 100 mls/hr ONCE ONE Administration Meperidine HCl 12.5 mg 08/07/23 20:31 Meperidine 25mg/Ml 1ml Syringe IV 08/07/23 22:31 Q5MINP PRN Shivering Morphine Sulfate 1 mg 08/07/23 20:31 Morphine 2mg/Ml Syringe IV 08/07/23 22:31 Q5MINP PRN Mild Pain (1-3) Ondansetron HCl 4 mg 08/07/23 20:31 Ondansetron 4mg/2ml Vial IV 08/07/23 22:32 Q6HP PRN Nausea Discontinued Medications Generic Name Dose Route Start Last Admin Trade Name Freq PRN Reason Stop Dose Admin Acetaminophen 1,000 mg 08/07/23 15:55 08/07/23 16:09 Acetaminophen 1,000mg/100ml Vial IV 08/07/23 15:56 1,000 mg ONCE ONE Administration Lactated Ringer's 1,000 mls @ 999 mls/hr 08/07/23 15:55 08/07/23 16:09 Lactated Ringer's 1000 Ml Bag IV 08/07/23 16:55 999 mls/hr .Q1H1M ONE Administration Clindamycin Phosphate 900 mg in 50 mls @ 100 mls/hr 08/07/23 18:28 Clindamycin 900mg/50ml D5w Premix IV 08/07/23 18:57 ONCE ONE Metronidazole 500 mg in 100 mls @ 100 mls/hr 08/07/23 18:28 Flagyl 500mg/100ml Ivpb IV 08/07/23 19:27 ONCE ONE Iopamidol 75 ml 08/07/23 17:19 08/07/23 17:20 Iopamidol-370 (76%);100ml Bottle IV 08/07/23 17:20 75 ml ONCE ONE Administration Ketorolac Tromethamine 15 mg 08/07/23 15:55 08/07/23 16:09 Ketorolac 30mg/Ml Vial IV 08/07/23 15:56 15 mg ONCE ONE Administration Ondansetron HCl 4 mg 08/07/23 15:59 08/07/23 16:09 Ondansetron 4mg/2ml Vial IV 08/07/23 16:00 4 mg ONCE ONE Administration Sodium Chloride 10 ml 08/07/23 17:19 08/07/23 17:19 Sodium Chloride 0.9% 10ml Syr (Rad Only) IV 08/07/23 17:20 10 ml ONCE ONE Administration ORDERS Category Date Time Status CT abdomen pelvis w con Stat Cat Scan 08/07/23 15:58 Completed US gallbladder Stat Exams 08/07/23 16:09 Completed CBC w/Auto Diff [Complete Blood Count Auto Diff] Stat Lab 08/07/23 16:00 Completed CMP [Comprehensive Metabolic Panel] Stat Lab 08/07/23 16:00 Completed CRP [C-Reactive Protein] Stat Lab 08/07/23 16:00 Completed HCG Qualitative, Serum Stat Lab 08/07/23 16:00 Completed INR [Prothrombin Time INR] Stat Lab 08/07/23 16:00 Completed Magnesium Stat Lab 08/07/23 16:00 Completed UA [Urinalysis and Microscopic] Stat Lab 08/07/23 16:08 Completed Urinalysis (cathed specimen) Routine Lab 08/07/23 18:51 Ordered Medical Decision Narrative: In summary patient is a 23-year-old female who presents to the emergency department for evaluation of evaluation of right-sided acute abdominal pain. Patient is hemodynamically stable upon arrival, afebrile. Physical exam is remarkable for both right upper and right lower quadrant abdominal pain however there is no rebound no guarding no rigidity. Bowel sounds are normal active. No peritoneal signs currently. Differential diagnosis includes acute cholecystitis, acute cholelithiasis, acute appendicitis, ovarian torsion, constipation etc. Initial workup will be conducted with hematologic labs beta-hCG, CT scan abdomen pelvis, right upper quadrant ultrasound, urine. Initial interventions include Toradol and Tylenol and Zofran. Initial workup reviewed by me shows an elevated white count with a left shift, and my informal read of her CT scan abdomen pelvis shows findings consistent and concerning for acute appendicitis the remainder of her workup nonactionable. Upon repeat evaluation she continues to have intermittent waxing and waning pain. Given this discussed patient management with general surgery who agrees that this is reasonable to take patient to the operating room this evening. Patient verbalized understanding and agreement. I was consulted by the [facility], and we discussed the complexity of the problems being addressed.I approved the treatment and management plan for this patient?s care in the Emergency Department, thus performing a substantive portion of the medical decision making.Signed, Josse Avelar MD Critical Care <JENIFER Ocampo - Last Filed: 08/07/23 17:48> Critical Care Time Critical Care Time: No
--- NOTE | 2023-08-07 15:58 | CT_ITS ---
PROCEDURE INFORMATION: Exam: CT Abdomen And Pelvis With Contrast Exam date and time: 08/07/2023 5:13 PM Age: 23 years old Clinical indication: Abdominal pain; Additional info: Acute right lower quadrant abdominal pain TECHNIQUE: Imaging protocol: Computed tomography of the abdomen and pelvis with contrast. Radiation optimization: All CT scans at this facility use at least one of these dose optimization techniques: automated exposure control; mA and/or kV adjustment per patient size (includes targeted exams where dose is matched to clinical indication); or iterative reconstruction. Contrast material: ISOVUE; Contrast volume: 75 ml; Contrast route: IV; COMPARISON: 1. US GALLBLADDER 08/07/2023 4:13 PM 2. US OB /MATERNAL DETAIL 09/30/2021 2:36 PM FINDINGS: Liver: Normal. Gallbladder and bile ducts: No acute process. Pancreas: Normal. Spleen: Normal. Adrenal glands: The adrenal glands appear normal. Kidneys and ureters: There are no soft tissue renal masses or hydronephrosis. Stomach and bowel: The stomach, small bowel, and colon are well-distended and show no evidence of wall thickening, masses, or obstruction. Appendix: There is minimal periappendiceal stranding with some mucosal hyperenhancement but without significant distension, findings are somewhat equivocal for acute appendicitis and correlation with clinical exam findings is suggested. Intraperitoneal space: There is a small volume of free fluid in the pelvis. Vasculature: The abdominal aorta and its major branches appear normal without evidence of aneurysm or stenosis. There are pelvic phleboliths. Lymph nodes: Mildly prominent nodes in the central mesentery, nonspecific. Urinary bladder: There is moderate distention of the urinary bladder. Reproductive: Fluid-filled bowel loops in the right adnexal region could reflect reactive ileus but a small ovarian cyst is not excluded. Bones/joints: The visualized osseous structures of the abdomen and pelvis appear normal for patient age. Soft tissues: There is an umbilical piercing IMPRESSION: There is minimal periappendiceal stranding with some mucosal hyperenhancement but without significant distension, findings are somewhat equivocal for early acute appendicitis and correlation with clinical exam findings is suggested.
[2023-08-07] MEDS: KETOROLAC 30MG/ML VIAL 15 MG IV (16:09)
[2023-08-07] MEDS: ACETAMINOPHEN 1,000MG/100ML VIAL 1000 MG IV (16:09)
[2023-08-07] MEDS: LACTATED RINGERS 1000ML 1,000 ML 999 ML IV (16:09)
[2023-08-07] MEDS: ONDANSETRON 4MG/2ML VIAL 4 MG IV (16:09)
--- NOTE | 2023-08-07 16:09 | US_ITS ---
PROCEDURE INFORMATION: Exam: US Abdomen, Limited; Right Upper Quadrant Exam date and time: 08/07/2023 4:13 PM Age: 23 years old Clinical indication: Abdominal pain; Additional info: Right-sided acute abdominal pain TECHNIQUE: Imaging protocol: Real time ultrasound of the abdomen with image documentation. Limited exam focused on the right upper quadrant. COMPARISON: US OB /MATERNAL DETAIL 09/30/2021 2:36 PM FINDINGS: Liver: The liver appears normal in size and echogenicity, with no evidence of focal hepatic lesions or intrahepatic ductal dilatation. Portal and hepatic veins are patent and show no signs of thrombosis. Gallbladder: The gallbladder is well-distended and unremarkable, with no evidence of cholelithiasis, wall thickening, or pericholecystic fluid. There is questionable small sludge within gallbladder. The common bile duct measures within normal limits, and there are no signs of dilatation. Biliary ducts: The common bile duct measures within normal limits, and there are no signs of dilatation. Pancreas: Visualized pancreas is unremarkable. Right kidney: The right kidney is normal in size, contour, and echogenicity. No hydronephrosis, renal calculi, or focal renal lesions are identified. The renal pelvis and calyces appear unremarkable, and there is no evidence of obstruction. IMPRESSION: At the time of imaging, the right upper quadrant ultrasound reveals no acute or chronic pathology involving the liver, gallbladder, bile ducts, or right kidney. All observed structures appear within normal limits and are appropriate for the patient's age.
[2023-08-07 16:11] LABS: Basophils # 0.2 K/mm3 (0-0.2); Basophils % 1.1 % (0.1-2.0); Eosinophils # 0.2 K/mm3 (0.0-0.4); Eosinophils % 1.5 % (0.1-12.0); Hematocrit 42.5 % (37.0-47.0); Hemoglobin 13.1 g/dL (12.2-16.2); Lymphocytes # 2.9 K/mm3 (0.7-4.5); Lymphocytes % 22.5 % (10-50); Mean Corpuscular HGB Conc 30.8 g/dL (31.8-35.4); Mean Corpuscular Hemoglobin 26.4 pg (27.0-31.2); Mean Corpuscular Volume 85.8 fl (81-99); Mean Platelet Volume 8.8 fl (7.4-10.4); Monocytes # 0.5 K/mm3 (0.1-1.0); Monocytes % 3.7 % (1.7-9.3); Neutrophils # 9.2 K/mm3 (1.8-7.8); Neutrophils % 71.2 % (37.0-80.0); Platelet Count 334 K/mm3 (142-424); Red Blood Count 4.95 M/mm3 (4.20-5.40); Red Cell Distribution Width 13.9 % (11.5-17.5); White Blood Count 12.9 K/mm3 (4.8-10.8)
[2023-08-07 16:13] LABS: Microscopic, Urine URINE MICROSCOPIC (MICROSCOPIC)
[2023-08-07 16:19] LABS: Alanine Aminotransferase 23 U/L (12-78); Albumin Level 4.5 g/dl (3.5-5.0); Albumin/Globulin Ratio 1.6 (1.1-1.8); Alkaline Phosphatase 84 U/L (38-126); Anion Gap 9.8 mEq/L (5-15); Aspartate Amino Transferase 30 U/L (14-36); Bilirubin,Total 0.4 mg/dl (0.2-1.3); Blood Urea Nitrogen 12 mg/dl (7-17); Calcium 9.1 mg/dl (8.4-10.2); Carbon Dioxide 31 mmol/L (22.0-30.0); Chloride 104 mmol/L (98-107); Creatinine Clearance Estimated 170 mL/min (50-200); Estimated Glomerular Filt Rate 104 ml/min (>60); GFR (African American) 125 ML/MIN (>60); Globulin 2.9 g/dL (1.3-3.2); Glucose 113 mg/dl (74-100); Magnesium 2.2 mg/dl (1.6-2.3); Potassium 3.8 mmoL/L (3.5-5.1); Sodium 141 mmol/L (136-145); Total Protein,Serum 7.4 g/dl (6.3-8.2)
[2023-08-07 16:20] LABS: INR 1.02 (0.9-1.1)
--- NOTE | 2023-08-07 16:20 | PC.NURSE ---
PT TO US
[2023-08-07 16:24] LABS: C-Reactive Protein 1.1 mg/L (0-4)
--- NOTE | 2023-08-07 16:39 | PC.NURSE ---
PT RETURNED FROM US
[2023-08-07 16:50] LABS: Appearance,Urine CLEAR (Clear); Blood, Urine 1+ (Negative); Glucose,Urine (UA) Negative (Negative); Ketones,Urine TRACE (Negative); Leukocyte Esterase,Urine TRACE (Negative); Nitrate,Urine Negative (Negative); Protein,Urine Negative (Negative); Specific Gravity, Urine 1.025 (1.005-1.030); Urobilinogen,Urine 0.2 EU/dl (0.2)
[2023-08-07 16:52] LABS: HCG Qualitative, Serum Negative (Negative)
[2023-08-07 16:53] LABS: Bilirubin,Urine 1+ (Negative); Color,Urine Amber (Yellow)
--- NOTE | 2023-08-07 17:04 | PC.NURSE ---
Rounded on pt. No needs voiced at this time. Call light within reach and visitor at BS
[2023-08-07] MEDS: SODIUM CHLORIDE 0.9% 10ML SYR (RAD ONLY) 10 ML IV (17:19)
[2023-08-07] MEDS: IOPAMIDOL-370 (76%);100ML BOTTLE 75 ML IV (17:20)
--- NOTE | 2023-08-07 17:38 | PC.NURSE ---
LEIDY SPEAKING WITH DR SIMMONS
--- NOTE | 2023-08-07 17:39 | PC.NURSE ---
DON AT BEDSIDE TO UPDATE PT AND FAMILY
--- NOTE | 2023-08-07 17:41 | PC.NURSE ---
BRITTANY BARNES NOTIFIED TO CALL [facility] TEAM
[2023-08-07 17:43] LABS: Bacteria,Urine Trace /lpf; RBC,Urine Occasional #/hpf (0-3); WBC,Urine Occasional #/hpf (0-3)
--- NOTE | 2023-08-07 17:50 | PC.NURSE ---
CONSENT SIGNED AT THIS TIME
--- NOTE | 2023-08-07 18:07 | PC.NURSE ---
DR SIMMONS AT BEDSIDE
--- NOTE | 2023-08-07 18:28 | PC.NURSE ---
SURGERY AT BEDSIDE, SURGERY PACKET GIVEN TO NURSE.
[2023-08-07] MEDS: METRONIDAZ/SOD CHL 500 MG/100 ML PIGGYBACK 100 MG IV ×2 (18:55→19:00)
[2023-08-07] MEDS: LIDOCAINE 1% 20ML MDV 20 ML (19:05)
--- NOTE | 2023-08-07 20:06 | EXP.OP.NOTE ---
Date of procedure: 08/07/23 Pre-op Diagnosis:: Appendicitis Post-op Diagnosis:: Same Procedure performed:: Laparoscopic appendectomy Surgeon:: Sathish Cash MD Anesthesia: GETA Estimated blood loss (mL): 15 Operative findings:: Enlarged appendix with severe periappendiceal inflammation No obvious perforation No obvious abscess Focal suppurative changes Operative note:: After informed consent was obtained the patient was taken to the operating room and placed in the supine position. General anesthesia was induced and her abdomen was prepped and draped in a sterile fashion. After infiltration with local anesthetic an infraumbilical incision was made. A Veress needle was placed in position. A 12 mm optical trocar was placed in position. Under direct visualization a 5 mm trocar was placed in the suprapubic position and an additional 5 mm trocar was placed in the left lower quadrant. The appendix was carefully elevated. Severe periappendiceal inflammation with focal suppurative changes were noted. The appendix was densely adhesed to the adjacent small bowel and to the colon. No obvious perforation was noted. A combination of blunt dissection and harmonic bandar was utilized to transect through the mesoappendix. An Endopath 45 stapling device was then used to transect the appendix at its base. The appendix was placed in a retrieval bag and removed through the infraumbilical trocar site. The right lower quadrant was thoroughly irrigated. No sign of injury or bleeding was noted. Specifically, no sign of injury to the colon or small bowel was visible. Pneumoperitoneum was released as the trocars were removed. Fascia at the infraumbilical trocar site was reapproximated with interrupted 0 Ethibond. All wounds were irrigated and skin was reapproximated with 4-0 Monocryl in an interrupted mattress fashion to facilitate hemostasis. Dressings were applied and the patient was transferred to recovery in stable condition. Condition: stable Disposition: PACU Specimens:: Appendix Complications:: No immediate
--- NOTE | 2023-08-07 20:26 | EXP.ANES.CKL ---
[facility] Disclaimer: The information contained in this section may have been updated after the patient was seen, as this information can be updated by other users. Social History Smoking Status: Never smoker second hand exposure: No alcohol intake: never substance use type: denies use current occupational status: employed Travel in the last 8 weeks: None household members: family housing: house current occupation: [employer] caffeine: Yes [facility] Anesthesia Checklist Patient Identification Patient Identification: Arm Band and Family Structural Data Admitted From: Emergency Dept Planned Operative Procedure/s: Emergency laproscopic appendectomy Consent for Planned Operative Procedure(s) Verified: Yes Verified Documents: Surgical Consent and History and Physical NPO Status Verified Time NPO: 00:00 Additional verifications Patient : No Anesthesia Reactions: No Hx Blood Transfusions: No Blood Transfusion Reaction: No Previous Colonoscopy: No Airway Assessment Mallampati Score:: Class III C-Spine Mobility Assessed: Yes TMJ Mobility Assessed: Yes Dentition: Good Dentition Neurological Assessment Level of Consciousness: Awake, Alert, Appropriate and Follows Commands Hx Seizures: No Numbness or tingling in extremities: No Anesthesia Plan Anesthesia Risk discussed: Yes ASA Class: I Anesthesia Type: General
--- NOTE | 2023-08-07 20:29 | P.PNANES_ITS ---
[facility] Anesthesia Record Part I Anesthesia Record I Intake, IV Amount: 900 Hydration: Adequate Estimated blood loss (mL): 15 Urine output (mL): 1,000 Blood Products used (#): none Blood Pressure: 108/52 SaO2: 94 Pulse Rate: 83 Airway Patency: Patent Respiratory Rate: 16 Temperature: 98.4 F Patient is:: Drowsy and Stable Stable to PACU at:: 20:10
[2023-08-08 00:03] LABS: Microscopic,Cath URINE MICROSCOPIC (MICROSCOPIC)
[2023-08-08 00:22] LABS: Appearance,Urine/Cath CLEAR (Clear); Bilirubin,Cath Negative (Negative); Blood, Urine/Cath Negative (Negative); Color,Urine/Cath YELLOW (Yellow); Glucose,Urine/Cath (UA) Negative (Negative); Ketones,Urine/Cath Negative (Negative); Leukocyte Esterase,Cath Negative (Negative); Nitrate,Cath Negative (Negative); Protein,Urine/Cath Negative (Negative); Specific Gravity, Urine/Cath <= 1.005 (1.005-1.030); Urobilinogen,Cath 0.2 EU/dl (0.2)
[2023-08-08 00:34] LABS: Squamous Epithelial Ur./Cath Occasional #/hpf (0-5)
[2023-08-08 00:35] LABS: Bacteria,Urine/Cath TRACE /lpf
--- NOTE | 2023-08-08 11:31 | P.PNANES_ITS ---
[facility] Anesthesia Record Part II Anesthesia Record Part II Discharge Time: 20:40 Destination: Surgical Day Care (OP Surgery) PACU nurse assessment reviewed?: Yes Patient Condition:: Good Anesthesia Complications:: None Swallowing reflex intact?: Yes Airway Patency: Patent Cyanosis?: No Blood Pressure: 106/50 SaO2: 98 Respiratory Rate: 19 Pulse Rate: 78 Temperature: 97.5 F Mental Status: Alert & Oriented Pain level:: 0 Nausea and/or vomitting:: None Intake, IV Amount: 0 Hydration: Adequate
[2023-08-08 11:32] VITALS: BP 106/50; PULSE 78; RESP 19; TEMP 36.4; O2SAT 98
== END 2023-08-07 21:00 | disposition home or self-care (01) ==
LOC: ER 17:48 → OR 18:33
PROVIDERS: Physician Assistant; Emergency Provider Emergency Medicine; PCP Family Medicine; Visit Provider Surgery
PROC: 0DTJ4ZZ Resection of Appendix, Percutaneous Endoscopic Approach (ICD-10-PCS; CPT 44970; principal; 2023-08-07 18:20)
DX: K35.80 Unspecified acute appendicitis (principal)
CPT/HCPCS: 44970; 74177; 76705; 80053; 81001; 83735; 84703; 85025; 85610; 86140; 96374; J3490; J0131; J2405; Q9967

== ENCOUNTER 2024-02-26 12:00 | Outpatient (CLI) | payer BC, SELFPAY | END 2024-02-26 23:59 | disposition home or self-care (01) | LOC: LAB 12:05 | PROVIDERS: PCP Nurse Practitioner; Visit Provider Obstetrics & Gynecology | DX: Z02.9 Encounter for administrative examinations, unspecified (principal) ==